=== PATIENT | male | born 1955 | race Caucasian/White ===

== ENCOUNTER → 2020-04-04 07:08 | Outpatient (CLI) | payer MEDICARE, SELFPAY ==
--- NOTE | ~2020-04-04 | XR_ITS ---
EXAMINATION:[id number] DATE: 04/04/2020 07:46 INDICATION: Cervicalgia and limited range of motion TECHNIQUE: AP, lateral, lateral swimmers and odontoid views of the cervical spine are provided. COMPARISON: None FINDINGS: 2 mm anterolisthesis C6 on C7. Alignment is otherwise normal. Odontoid is intact. Normal atlantoaxia l interval. Vertebral body heights are normal. Mild disc height loss with mild bilateral uncovertebra l osteoarthritis at C3-C4 through C5-C6. Multilevel bilateral moderate cervical facet osteoarthritis. Prevertebral soft tissues are normal. Utilized apices of lungs are clear. IMPRESSION: 1. Mild to moderate cervical spondylosis with 2 mm anterolisthesis C6 on C7. Reviewed, dictated and finalized at location B. [employer]
== END ==
PROVIDERS: PCP Family Medicine; Visit Provider Family Medicine
DX: M54.2 Cervicalgia (principal); M47.812 Spondylosis without myelopathy or radiculopathy, cervical region
CPT/HCPCS: 72040